=== PATIENT | female | born 1975 | race Caucasian/White ===

== ENCOUNTER 2016-11-21 06:00 | Emergency (ER) ==
[2016-11-21 06:10] VITALS: BP 0/0; TEMP 0
== END 2016-11-21 06:11 | disposition left against medical advice (07) ==
LOC: ED 06:00
DX: J02.9 Acute pharyngitis, unspecified (principal); R05 Cough; H92.01 Otalgia, right ear

== ENCOUNTER 2017-01-12 11:09 | Outpatient (CLI) ==
[2017-01-12 11:36] LABS: BASOPHILS # (AUTO) 0.1 K/uL (0-0.2); BASOPHILS % (AUTO) 0.6 % (0.0-3.0); EOSINOPHILS # (AUTO) 0.1 K/ul (0.0-0.7); EOSINOPHILS % (AUTO) 0.6 % (0.0-7.0); HEMATOCRIT 36.8 % (37.0-47.0); HEMOGLOBIN 11.3 g/dl (12.0-16.0); IMMATURE GRANULOCYTE % (AUTO) 0.4 % (0.0-5.0); LYMPHOCYTES # (AUTO) 0.8 K/uL (0.60-3.4); LYMPHOCYTES % (AUTO) 6.6 (10.0-50.0); MEAN CORPUSCULAR HEMOGLOBIN 23.1 pg (27.0-31.0); MEAN CORPUSCULAR HGB CONC 30.7 (31.8-35.4); MEAN CORPUSCULAR VOLUME 75.1 fl (81.0-99.0); MONOCYTES # (AUTO) 0.7 K/uL (0.4-2.0); MONOCYTES % (AUTO) 6.3 (0-10); NEUTROPHILS # (AUTO) 9.7 K/ul (2.0-6.9); NEUTROPHILS % (AUTO) 85.5; PLATELET COUNT 359 10^3/uL (140-440); WHITE BLOOD COUNT 11.33 K/ul (4.6-10.2)
--- NOTE | 2017-01-12 12:02 | DI ---
EXAM: Chest two view, frontal and lateral views. HISTORY: Chest pain. COMPARISON: 04/24/2016. FINDINGS: Heart size is normal. There is no vascular congestion. Linear opacities are seen in bot h lung bases, greater on the left. No pleural effusion or pneumothorax identified. Cholecystectomy clips are present. IMPRESSION: Bibasilar subsegmental atelectasis.
[2017-01-12 12:08] LABS: ALBUMIN 3.6 g/dL (3.4-5.0); ALBUMIN/GLOBULIN RATIO 1.03; ANION GAP 10.4; BILIRUBIN,TOTAL 0.45 mg/dL (0.00-1.20); BUN/CREATININE RATIO 8.88; CALCIUM 8.9 mg/dL (8.2-10.2); CREATININE 0.9 mg/dL (0.60-1.30); POTASSIUM 3.4 mmol/L (3.5-5.10); TOTAL PROTEIN 7.1 g/dL (6.4-8.2)
== END 2017-01-12 11:10 | disposition home or self-care (01) ==
LOC: LAB 11:09
PROVIDERS: ATTEND Nurse Practitioner Family
DX: R07.89 Other chest pain (principal)
CPT/HCPCS: 36415; 80053; 85025; 93005; 93010

== ENCOUNTER 2017-01-12 18:41 | Emergency (ER) ==
[2017-01-12 18:48] VITALS: BP 138/83; TEMP 101.4; BMI 37.1
[2017-01-12] MEDS ORDERED: DECADRON 4 MG/ML SDV IM STA (19:14)
[2017-01-12] MEDS ORDERED: TYLENOL PO STA (19:29)
[2017-01-12 19:52] LABS: FLU INTERNAL QC INTERNAL QC VALID; RAPID FLU A NEGATIVE (NEGATIVE); RAPID FLU B NEGATIVE (NEGATIVE)
--- NOTE | 2017-01-12 20:11 | ED.PDOC ---
General ED Provider: Dr. ISABEL BATES Chief Complaint: Fever Stated Complaint: patient was seen [facility], today morning and they gave her some medications, but she was feeling bad and had fever so came for the evaluation. Time Seen by Physician: 20:10 Mode of Arrival: Walk-In Information Source: Patient Primary Care Provider: ISABEL BATES-[facility] Nursing and Triage Documentation Reviewed and Agree: Yes Miscellaneous Complaint Exam - Febrile Illness/Adult Complaint/Exam Symptoms Are: Still present Timing: Constant Episodes Lasting: Days Initial Severity: Moderate Current Severity: Moderate Aggravating: Reports: None Alleviating: Reports: None Associated Signs and Symptoms: Reports: Short of air, Cough. Denies: Headache, Fluid intake, Sore throat, Nausea, Vomiting, Chills, Diaphoresis, Dysuria, Arthralgia, Stiff neck, Myalgia, Rash, Altered mental status Pseudomonas Risk Factors: Reports: None Serious Bacterial Infection Risk Factors: Reports: None Current Antibiotic Use: Yes Related Surgical History: None Differential Diagnoses: Pneumonia, Sepsis, Viremia Review of Systems - Review Of Systems Constitutional: Reports: Malaise, Weakness Eyes: Reports: No symptoms Ears, Nose, Mouth, Throat: Reports: Nose discharge Respiratory: Reports: Cough, Short of air Cardiac: Reports: No symptoms GI: Reports: No symptoms : Reports: No symptoms Musculoskeletal: Reports: No symptoms Skin: Reports: No symptoms Neurological: Reports: No symptoms Endocrine: Reports: No symptoms Hematologic/Lymphatic: Reports: No symptoms All Other Systems: Reviewed and Negative Past Medical History - Past Medical History Previously Healthy: No Endocrine: Reports: None Cardiovascular: Reports: None Respiratory: Reports: None Hematological: Reports: None Gastrointestinal: Reports: None Genitourinary: Reports: None Neuro/Psych: Reports: None Musculoskeletal: Reports: None Cancer: Reports: None Last Menstrual Period: last week - Surgical History General Surgical History: Reports: Unknown - Family History Family History: Reports: Unknown - Social History Smoking Status: Never smoker Hx Substance Use: No Alcohol Screening: None Physical Exam - Physical Exam Appearance: Ill-appearing, Obese Ill-appearing: Mild Eyes: IAN, EOMI, Conjunctiva clear ENT: Ears normal, Nose normal, Oropharynx normal Respiratory: Airway patent, Breath sounds clear, Breath sounds equal, Respirations nonlabored Cardiovascular: RRR, Pulses normal, No rub, No murmur GI/: Soft, Nontender, No masses, Bowel sounds normal, No Organomegaly Musculoskeletal: Normal strength, ROM intact, No edema, No calf tenderness Skin: Warm, Dry, Normal color Neurological: Sensation intact, Motor intact, Reflexes intact, Cranial nerves intact, Alert, Oriented Psychiatric: Affect appropriate, Mood appropriate Critical Care Note - Critical Care Note Total Time (mins): 0 Course - Course Orders, Labs, Meds: Lab Review 01/12/17 01/12/17 19:21 19:27 Lactic Acid 7.4 Procalcitonin < 0.05 Influenza A (Rapid) Negative Influenza B (Rapid) Negative Orders Category Date Time Status BLOOD CULTURE Stat LAB 01/12/17 19:27 Received LACTIC ACID Stat LAB 01/12/17 19:27 Completed MOLECULAR GROUP A STREP Stat LAB 01/12/17 19:21 Results PROCALCITONIN Stat LAB 01/12/17 19:27 Completed RAPID FLU A/B Stat LAB 01/12/17 19:21 Completed STREP SCREEN Stat LAB 01/12/17 19:21 Results Acetaminophen [Tylenol] MEDS 01/12/17 19:29 Discontinued 500 mg PO ONCE STA Dexamethasone 4 mg/ml Inj [Decadron 4 mg/ml Sdv] MEDS 01/12/17 19:14 Discontinued 4 mg IM ONCE STA Medications Discontinued Medications Generic Name Dose Route Start Last Admin Trade Name July PRN Reason Stop Dose Admin Acetaminophen 500 mg 01/12/17 19:29 01/12/17 19:34 Tylenol PO 01/12/17 19:30 500 mg ONCE STA Administration Dexamethasone Sodium Phosphate 4 mg 01/12/17 19:14 01/12/17 19:25 Decadron 4 Mg/Ml Sdv IM 01/12/17 19:15 4 mg ONCE STA Administration Vital Signs: Temp Pulse Resp BP Pulse Ox 01/12/17 18:42 101.4 F H 94 H 20 138/83 94 L Departure - Departure Time of Disposition: 20:16 Disposition: HOME SELF-CARE Discharge Problem: Fever, URTI (acute upper respiratory infection) Instructions: Upper Respiratory Infection (ED) Condition: Stable Pt referred to PMD for follow-up: Yes Additional Instructions: continue antibiotics and steroids increase hydration probiotics tylenol prn Allergies/Adverse Reactions: Allergies No Known Allergies Allergy (Verified 01/12/17 18:48) Disposition Discussed With: Patient
== END 2017-01-12 20:25 | disposition home or self-care (01) ==
LOC: ED 18:41
DX: J06.9 Acute upper respiratory infection, unspecified (principal); R07.89 Other chest pain
CPT/HCPCS: 36415; 80053; 83605; 84145; 85025; 87040; 87651; 87804; 87880; 93005; 93010; 96372; 99283

== ENCOUNTER 2017-01-15 15:26 | Outpatient (CLI) ==
--- NOTE | 2017-01-15 16:38 | CT ---
EXAM: CTA of the chest. History: Short of breath Comparison: Chest radiograph 01/12/2017 Technique: Multiplanar CT images through the thorax were obtained following administration of IV co ntrast. MIP images and 3-D reconstructions were also acquired. Findings: Heart is borderline enlarged. No pericardial effusion. Great vessels are not well opaci fied with contrast but there is no thoracic aneurysm. No pulmonary arterial filling defects. No pa thologically enlarged thoracic lymph nodes. There are calcified mediastinal and right hilar lymph n odes. Mild diffuse bronchial wall thickening and patchy basilar predominant bilateral ground-glass infiltr ates with right greater than left basilar predominant tree in bud opacities. Bibasilar subsegmental atelectasis or infiltrate. No pneumothorax. No pleural fluid. Within the visualized upper abdomen, postsurgical changes of the stomach. Cholecystectomy clips. N o acute osseous abnormalities. Impression: 1. Findings consistent with bilateral pneumonia and most significant in the right lower lobe. 2. Borderline cardiomegaly. 3. No pulmonary embolism.
== END 2017-01-15 15:27 | disposition home or self-care (01) ==
LOC: RAD 15:26
PROVIDERS: ATTEND Nurse Practitioner Family
DX: R06.02 Shortness of breath (principal)

== ENCOUNTER 2017-06-24 08:50 | Outpatient (CLI) ==
[2017-06-24 09:28] LABS: CREATININE 0.84 mg/dL (0.60-1.30)
--- NOTE | 2017-06-25 08:44 | MRI ---
EXAM: Thoracic spine MRI without and with contrast. HISTORY: Intramedullary abnormality of the spinal cord. COMPARISON: Thoracic spine MRI 05/01/2014. TECHNIQUE: Multiplanar, multisequence MR images were acquired of the thoracic spine before and afte r administration of intravenous contrast. FINDINGS: 12 rib-bearing thoracic vertebra are present. There is mild stable mid thoracic dextrosc oliosis centered at T6-7. The thoracic vertebra are generally normal in height and intrinsic bone m arrow signal. Small marginal osteophytes are present in the mid thoracic spine and there is disc de siccation from T3-4 through T9-10 and mild endplate irregularity in the mid and lower thoracic spine . Small chronic Schmorl's nodes are present at T6 and T7. Canal diameter is developmentally normal . The thoracic cord ends at L1. At the T12 level, there is a well-circumscribed 7.3 mm AP by 5.6 mm T X by 8.7 mm CC intradural intramedullary cystic lesion. This has an ovoid configuration, low T1, br ight T2 signal and no associated edema or contrast enhancement. This is unchanged compared to the p revious MRIs. No additional lesions are identified in the thoracic cord. The partially visualized liver, spleen and kidneys are unremarkable. T1-T2 to T4-5: The intervertebral discs are normal. There is no central canal stenosis. At T4-5, there is right hypertrophic facet arthropathy and mild right neural foraminal stenosis. T5-6: There is a minor dorsal spondylotic disc bulge and right hypertrophic facet arthropathy. The re is mild right neural foraminal stenosis. No central canal stenosis is present. T6-7, T7-8: The intervertebral discs are normal. There is left hypertrophic facet arthropathy at T 7-8. There is no central canal stenosis or significant foraminal stenosis. T8-9: The intervertebral disc is normal. There is hypertrophic left facet arthropathy and moderate ly severe left neural foraminal stenosis. T9-10: The intervertebral disc is normal. Bilateral perineural cysts are present, larger on the le ft. T10-11: The intervertebral disc is normal. Small bilateral perineural cysts are present. T11-12: The intervertebral disc is normal. There is right hypertrophic facet arthropathy without f oraminal stenosis. T12-L1: The intervertebral disc is normal. IMPRESSION: 1. 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 Clinical considerations include nonaggressive lesions such as a developme ntal ependymal or epidermoid cyst. 2. Stable mild mid thoracic dextroscoliosis and minor degenerative spondylosis. 3. Moderately severe left neural foraminal stenosis T8-9.
== END 2017-06-24 08:51 | disposition home or self-care (01) ==
LOC: RAD 08:50 → LAB 08:51
PROVIDERS: ATTEND Nurse Practitioner Family
DX: G54.8 Other nerve root and plexus disorders (principal)
CPT/HCPCS: 36415; 82565

== ENCOUNTER 2017-07-26 09:59 | Outpatient (CLI) ==
--- NOTE | 2017-07-26 13:19 | MRI ---
EXAM: MRI lumbar spine without IV contrast. DATE: 26 July 2017. HISTORY: Generalized low back pain. Cyst located at T11-12. TECHNIQUE: Sagittal and axial T1W and T2W sequences of the lumbar spine along with sagittal IR and c oronal T2W sequences were obtained using 1.2 Sonya magnet. No IV contrast. COMPARISON: MRI T-spine 06/24/2017. MRI L-spine 15 May 2009. MRI T-spine 04/30/2014. FINDINGS: There are five [id number] lumbar vertebra. There is no lumbar scoliosis. A 1.2 mm a nterior subluxation of S1 relative to L5 is noted. No other subluxation, acute fracture, osseous mal ignancy, or pars interarticularis defect is demonstrated. Lumbar vertebra are normal in height. T2W /FLAIR slightly bright, 10 x 11.5 mm focus in the L2 vertebral body may represent focal fat depositio n. Bone marrow signal is normal. Intervertebral discs are normal in height. No sacral fracture or stress reaction is apparent. Visible portion of each SI joint is unremarkable. Conus medullaris ter minates at T12-L1. A T2W bright, T1W dark, 7.7 mm AP x 6.6 mm transverse x 9.3 mm height focus in th e spinal cord at the T12 level is within 2 mm of the size from 2013 and unchanged from 06/24/2017. N o syrinx or myelomalacia is evident. No retroperitoneal lymphadenopathy, paraspinal mass, or aortic aneurysm is detected. Paraspinal musc ulature is symmetric bilaterally. Visible portions of the liver, spleen, adrenal glands kidneys reve al no distinct abnormality. Segmental analysis: T12-L1: Normal. L1-2: Normal. L2-3: Normal. L3-4: Normal. L4-5: Minor posterior to left far lateral disc bulge causes mild left foraminal narrowing and contac ts the left L4 exiting nerve root near the lateral margin of the foramen. No central canal stenosis. L5-S1: Minimal anterior subluxation of S1 and minor posterior to foraminal disc bulge (with midline annular fissure) do not cause significant foraminal stenosis or central canal stenosis. IMPRESSIONS: 1. Lumbar spine mild left foraminal narrowing with compromise of left L4 nerve root near the foramen - - this could be a source for pain/radiculopathy. 2. No lumbar spine central canal stenosis. 3. 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
== END 2017-07-26 10:00 | disposition home or self-care (01) ==
LOC: RAD 09:59
PROVIDERS: ATTEND Neurological Surgery
DX: M54.40 Lumbago with sciatica, unspecified side (principal)

== ENCOUNTER 2017-10-19 11:55 | Outpatient (CLI) ==
--- NOTE | 2017-10-19 13:03 | DI ---
EXAM: Chest two view, frontal and lateral views. HISTORY: Obesity. COMPARISON: 06/17/2017. FINDINGS: The heart size is normal. There is no pulmonary vascular congestion. The lungs are clear . No pleural effusion or pneumothorax is seen. No acute osseous abnormality identified. IMPRESSION: No acute cardiopulmonary process.
== END 2017-10-19 11:56 | disposition home or self-care (01) ==
LOC: RAD 11:55
PROVIDERS: ATTEND Nurse Practitioner Family
DX: E66.9 Obesity, unspecified (principal)
CPT/HCPCS: 36415; 80053; 80061; 84439; 84443; 85008; 85025; 93005; 93010

== ENCOUNTER 2018-04-18 12:57 | Outpatient (CLI) | END 2018-04-18 12:58 | disposition home or self-care (01) | LOC: RAD 12:57 | PROVIDERS: ATTEND Nurse Practitioner Family | DX: Z12.31 Encounter for screening mammogram for malignant neoplasm of breast (principal) | CPT/HCPCS: 77067 ==

== ENCOUNTER 2018-07-08 08:10 | Outpatient (CLI) | END 2018-07-08 08:11 | disposition home or self-care (01) | LOC: FCC-LAB 08:10 | PROVIDERS: ATTEND Family Medicine | DX: N30.90 Cystitis, unspecified without hematuria (principal) | CPT/HCPCS: 87086 ==

== ENCOUNTER 2018-10-20 16:41 | Outpatient (CLI) | END 2018-10-20 16:42 | disposition home or self-care (01) | LOC: LAB 16:41 → FCC-LAB 16:42 | PROVIDERS: ATTEND Family Medicine | DX: R30.0 Dysuria (principal) | CPT/HCPCS: 87086; 87186 ==

== ENCOUNTER 2019-02-18 21:23 | Emergency (ER) ==
[2019-02-18 21:32] VITALS: BP 143/83; BMI 38.4
[2019-02-18] MEDS ORDERED: ZOFRAN 4 MG/2 ML IVP STA (21:51)
[2019-02-18] MEDS ORDERED: LACTATED RINGERS 1,000 ML IV STA ×2 (21:51→23:09)
--- NOTE | 2019-02-18 21:54 | ED.PDOC ---
General ED Provider: Dr. DANW BRADSHAW MD Chief Complaint: Diarrhea Stated Complaint: diarrhea, fever/chills Time Seen by Physician: 21:40 Mode of Arrival: Walk-In Information Source: Patient Exam Limitations: No limitations Primary Care Provider: SHELBY TELLEZ Nursing and Triage Documentation Reviewed and Agree: Yes Does patient meet sepsis criteria?: No System Inflammatory Response Syndrome: Temp 101F or Greater Sepsis Protocol: For patient's 13 years and over: Temp is 96.8 and below OR 101 and greater Pulse >90 BPM Resp >20/minute Acutely Altered Mental Status Are patient's symptoms suggestive of a new infection, such as: -Pneumonia -Skin, Soft Tissue -Endocarditis -UTI -Bone, Joint Infection -Implantable Device -Acute Abdominal Infection -Wound Infection -Meningitis -Blood Stream Catheter Infection -Unknown Review of Systems - Review Of Systems Constitutional: Reports: Chills, Fever Eyes: Reports: No symptoms Ears, Nose, Mouth, Throat: Reports: No symptoms Respiratory: Reports: No symptoms Cardiac: Reports: No symptoms GI: Reports: Diarrhea, Nausea : Reports: No symptoms Musculoskeletal: Reports: No symptoms Skin: Reports: No symptoms Neurological: Reports: No symptoms Endocrine: Reports: No symptoms Hematologic/Lymphatic: Reports: No symptoms All Other Systems: Reviewed and Negative Past Medical History - Past Medical History Previously Healthy: No Endocrine: Reports: None Cardiovascular: Reports: None Respiratory: Reports: None Hematological: Reports: None Gastrointestinal: Reports: None Genitourinary: Reports: None Neuro/Psych: Reports: None Musculoskeletal: Reports: None Cancer: Reports: None Last Menstrual Period: LAST WEEK - Surgical History General Surgical History: Reports: Unknown - Family History Family History: Reports: Unknown - Social History Smoking Status: Never smoker Hx Substance Use: No Alcohol Screening: None - Immunizations Tetanus Shot up to Date: No Physical Exam - Physical Exam Appearance: Obese Ill-appearing: Mild Pain Distress: None Eyes: IAN, EOMI, Conjunctiva clear ENT: Ears normal, Nose normal, Oropharynx normal Respiratory: Airway patent, Breath sounds clear, Breath sounds equal, Respirations nonlabored Cardiovascular: RRR, Pulses normal, No rub, No murmur GI/: Bowel sounds hypoactive Musculoskeletal: Normal strength, ROM intact, No edema, No calf tenderness Skin: Warm, Dry, Normal color Neurological: Sensation intact, Motor intact, Reflexes intact, Cranial nerves intact, Alert, Oriented Psychiatric: Affect appropriate, Mood appropriate Critical Care Note - Critical Care Note Total Time (mins): 0 Course - Course Hematology/Chemistry: 02/18/19 22:05 02/18/19 22:05 Orders, Labs, Meds: Lab Review 02/18/19 02/18/19 22:05 22:05 WBC 11.79 H RBC 4.99 Hgb 9.8 L Hct 32.8 L MCV 65.7 L MCH 19.6 L MCHC 29.9 L RDW Coeff of Jason 18.2 H Plt Count 383 Immature Gran % (Auto) 0.3 Neut % (Auto) 85.8 Lymph % (Auto) 6.9 L [place] % (Auto) 6.7 Eos % (Auto) 0.0 Baso % (Auto) 0.3 Immature Gran # (Auto) 0.0 Neut # (Auto) 10.1 H Lymph # (Auto) 0.8 [place] # (Auto) 0.8 Eos # (Auto) 0.0 Baso # (Auto) 0.0 Anisocytosis 1+ Microcytosis 1+ Ovalocytes 1+ Sodium 132.8 L Potassium 2.94 L Chloride 98.5 Carbon Dioxide 25.7 Anion Gap 11.54 BUN 8.8 Creatinine 0.85 Estimated GFR (MDRD) 73.00 BUN/Creatinine Ratio 10.35 Glucose 121.3 H Calcium 8.60 Orders Category Date Time Status IV [ED IV/MEDIPORT/POWERPORT] .ONCE EMERGENCY 02/18/19 21:50 Active BMP [BASIC METABOLIC PANEL] Stat LAB 02/18/19 22:05 Completed CBC W/ AUTO DIFF Stat LAB 02/18/19 22:05 Completed RBC MORPHOLOGY Stat LAB 02/18/19 22:05 Completed 0.9 % Sodium Chloride [Saline Flush] MEDS 02/18/19 21:50 Ordered 1 syr IVF PRN PRN Ondansetron HCl/Pf [Zofran 4 mg/2 ml] MEDS 02/18/19 21:51 Discontinued 4 mg IVP ONCE STA Potassium Chloride [K-Dur] MEDS 02/18/19 22:44 Discontinued 20 meq PO ONCE STA Ringers Lactated Solution [Lactated Ringers] 1,000 ml MEDS 02/18/19 21:51 Discontinued IV BOLUS Ringers Lactated Solution [Lactated Ringers] 1,000 ml MEDS 02/18/19 23:09 Active IV BOLUS KUB [ABDOMEN 1 VIEW] Stat RADS 02/18/19 21:51 Completed Medications Generic Name Dose Route Start Last Admin Trade Name Freq PRN Reason Stop Dose Admin Lactated Ringer's 1,000 mls @ 1,000 mls/hr 02/18/19 23:09 02/18/19 23:11 Lactated Ringers IV 02/19/19 00:08 1,000 mls/hr BOLUS STA Administration Sodium Chloride 1 syr 02/18/19 21:50 02/18/19 22:07 Saline Flush IVF 1 syr PRN PRN Administration To flush IV Discontinued Medications Generic Name Dose Route Start Last Admin Trade Name Freq PRN Reason Stop Dose Admin Lactated Ringer's 1,000 mls @ 1,000 mls/hr 02/18/19 21:51 02/18/19 22:07 Lactated Ringers IV 02/18/19 22:50 1,000 mls/hr BOLUS STA Administration Ondansetron HCl 4 mg 02/18/19 21:51 02/18/19 22:09 Zofran 4 Mg/2 Ml IVP 02/18/19 21:52 4 mg ONCE STA Administration Potassium Chloride 20 meq 02/18/19 22:44 02/18/19 22:49 K-Dur PO 02/18/19 22:45 20 meq ONCE STA Administration Vital Signs: Temp Pulse Resp BP Pulse Ox 02/18/19 23:38 102.5 F H 02/18/19 21:24 102.8 F H 99 H 20 143/83 H 95 Departure - Departure Time of Disposition: 00:15 Disposition: HOME SELF-CARE Discharge Problem: Gastroenteritis and colitis, viral Instructions: Gastroenteritis (ED) Condition: Good Pt referred to PMD for follow-up: Yes IPMP verified?: No Allergies/Adverse Reactions: Allergies sertraline HCl [From Zoloft] Allergy (Mild, Verified 02/18/19 21:32) Nausea Home Medications: Ambulatory Orders 1 [No Reported Medications] 02/18/19 Transfer Form Completed: No Disposition Discussed With: Patient, Family
--- NOTE | 2019-02-18 22:11 | DI ---
Exam. Abdomen/KUB History. Diarrhea FINDINGS Postsurgical changes seen right upper quadrant. There is a nonobstructive bowel gas pattern. Minima lly gas-distended loops of small bowel left upper quadrant left mid abdomen. No renal calcification is seen. Multiple calcifications in the pelvis, probable phleboliths. Impression Nonobstructive bowel gas pattern. Prior cholecystectomy. Minimally gas-distended loops of small bowel left upper quadrant and left mid abdomen. Findings may be due to mild ileus due to enteritis.
[2019-02-18] MEDS ORDERED: K-DUR PO STA (22:44)
[2019-02-18 23:39] VITALS: TEMP 102.5
[2019-02-18] MEDS ORDERED: SODIUM CHLORIDE 1,000 ML IV STA (23:56)
[2019-02-19] MEDS ORDERED: MOTRIN PO STA (00:16)
== END 2019-02-19 00:30 | disposition home or self-care (01) ==
LOC: ED 21:23
DX: A08.4 Viral intestinal infection, unspecified (principal)
CPT/HCPCS: 36415; 80048; 85008; 85025; 96361; 96374; 99283